=== PATIENT | male | born 1975 | race Caucasian/White ===

== ENCOUNTER 2022-01-25 18:31 | Emergency (ER) | payer OTHER ==
[~2022-01-25] VITALS: Ht 185.4 cm; Wt 136.1 kg
[~2022-01-25 18:31] MED LIST: AMLODIPINE BESYL5 MG PO; ASPIRIN EC81 MG PO; AUGMENTIN 875-1 EACH PO; HYDROCHLOROTHIA25 MG PO; IBUPROFEN800 MG PO; K-DUR TAB 20 M20 MEQ PO; LEVAQUIN500 MG PO; PHENERGAN 25 MG25 M1 PO; PHENERGAN25 MG PR; PROTONIX40 MG PO; ZOFRAN ODT 4 MG4 MG SL; ZOFRAN ODT4 MG PO; ZOFRAN4 MG PO
[2022-01-25 20:05] LABS: HEMOGLOBIN 16.5 gm/dl (14.0-17.5); RED BLOOD COUNT 5.31 M/UL (4.20-5.50); WHITE BLOOD COUNT 14.4 K/UL (4.5-11.0)
[2022-01-25 20:24] LABS: BUN/CREATININE RATIO 21 (0-10)
[2022-01-27 12:11] LABS: HBSAG SCREEN Negative (Negative); HEP A AB, IGM Negative (Negative); HEP B CORE AB, IGM Negative (Negative); HEP C VIRUS AB <0.1 (0.0-0.9)
== END 2022-01-26 03:30 | disposition short-term general hospital (02) ==
LOC: ER1 18:31
PROVIDERS: Emergency Medicine; Physician Assistant
DX: U07.1 COVID-19 (principal); N39.0 Urinary tract infection, site not specified; E80.6 Other disorders of bilirubin metabolism
CPT/HCPCS: 80053; 80074; 81001; 83605; 83690; 85025; 85610; 85730; 87040; 87086; 96374; 96375; 99285; C9113; J0692; J2405; J7030; Q9967; U0002